=== PATIENT | male | born 1985 | race Caucasian/White ===

== ENCOUNTER 2016-09-03 11:22 | Day surgery (SDC) | payer MEDICAID ==
[~2016-09-03] VITALS: Ht 175.3 cm; Wt 72.5 kg
[~2016-09-03 11:22] MED LIST: 0.9% Sodium Chloride 1,000 ML IV PRN; CHOL10008 PO; OMEG1600 PO; RANI150C4 PO; Sodium Chloride LOK Flush 10 mL Syringe IV PRN; fentaNYL-PF 50 mCg/mL 2 mL Inj IVPUSH PRN
[2016-09-03 12:29] VITALS: BP 107/62; PULSE 51; RESP 12; O2SAT 100
--- NOTE | 2016-09-03 14:25 | PCM.ENDEGD ---
EGD Date of Service: Sep 03, 2016 Physician Maciel Saavedra MD Indication for Procedure Abdominal pain Post Procedure Dx & Findings: Normal EGD Procedure Esophagogastroduodenoscopy PROCEDURE IN DETAIL: The patient was placed in left lateral decubitus position. Bite block was placed. Scope lubricated, placed in posterior pharynx, passed through the cricopharyngeus and esophagus, slowly advanced the entire length of the gastric pouch, pylorus was identified, scope passed through the pylorus and descending portion of duodenum, withdrawn in the antrum, retroflexed upon itself for view of fundus and cardia. Scope was then withdrawn through the oropharynx. Esophagus was unremarkable with normal-appearing Z line. Stomach showed normal antrum pylorus as well as the body. Retroflexion showed normal fundus and cardia. Stomach was easily inflatable and deflated using air. Scope further advanced to distal duodenum which showed normal villous structures with normal folds. Impression Normal EGD Presedation Assessment Risks and Benefits Informed consent was obtained from the patient after all risks and benefits including but not limited to drug reaction, infection, pain, bleeding, perforation, as well as alternatives were discussed. Patient monitoring Continuous pulse oximetry, cardiac monitoring, blood pressure monitoring, IV access, and oxygen at 2L per nasal cannula. Periprocedural Fentanyl: Fentanyl 100mcg Incrementally Midazolam: Midazolam 5mg Incrementally Complications There were no periprocedural complications identified. Post Procedure Plan Post Procedure Recommendations 1. Restrict activities today. 2. Resume normal activities in the morning. 3. Resume medications. 4. GERD behavioral modification: - Avoid fatty, acidic, spicy, large meals - Do not lie down after meals - Do not eat or drink anything for at least 2 1/2 hours before going to bed at night - Discontinue tobacco and alcohol - Decrease or avoid caffeine - Avoid chocolate and mints - Decrease weight - Avoid aspirin and non steroidal anti-inflammatory agents (NSAID) such as Aleve, Advil, Mobic, Naproxen, Ibuprofen, etc 5. Add proton pump inhibitor. Take 30 minutes before 1st meal of the day. 6. Patient informed of normal post procedure side effects as bloating, drowsiness, blood streaking in the stool 7. If gastric biopsy reveal H.pylori, continue with appropriate treatment 8. If small bowel biopsy reveals celiac, continue with appropriate treatment 9. Please don't hesitate to call me with any questions Maciel Saavedra MD Sep 03, 2016 14:25
[2016-09-03 14:29] VITALS: BP 107/57; PULSE 52; RESP 12; O2SAT 95
[2016-09-03 14:39] VITALS: BP 93/54; PULSE 52; RESP 12; O2SAT 97
[2016-09-03 14:41] VITALS: BP 102/60; PULSE 66; RESP 12; O2SAT 98
== END 2016-09-03 23:59 | disposition home or self-care (01) ==
LOC: END 11:22
PROVIDERS: ATTEND Internal Medicine
DX: R10.13 Epigastric pain (principal); K58.2 Mixed irritable bowel syndrome; F32.9 Major depressive disorder, single episode, unspecified; Z85.6 Personal history of leukemia
CPT/HCPCS: 43235; J2250; J7030